=== PATIENT | female | born 1995 | race Caucasian/White ===

== ENCOUNTER 2020-05-20 16:45 | Emergency (ER) | payer OTHER ==
[~2020-05-20] VITALS: Ht 152.4 cm; Wt 46.6 kg
--- NOTE | 2020-05-20 17:22 | NUR ---
INTAKE COORDINATOR: PT TO ROOM FROM LOBBY
--- NOTE | 2020-05-20 17:39 | NUR ---
PT C/O RUQ ABD PAIN OFF AND ON FOR 2 TO 3 WEEKS. PAIN 2/. PT HAD NAUSEA, NO VOMITING. PAIN DESCRIBED "COLD BURNING". PT ALSO HAS BLOOD IN HER STOOL. PT ALSO HAD A WHITE STOOL RECENTLY. PT ALSO STATES SHE THINKS HER IUD HAS BEEN RECENTLY DISPLACED.
[2020-05-20 17:55] LABS: BASOPHILS % (AUTO) 1 % (0-1); EOSINOPHILS % (AUTO) 1 % (1-7); LYMPHOCYTES % (AUTO) 14 % (22-44); MEAN CORPUSCULAR HEMOGLOBIN 32.6 pg (27.0-34.8); MEAN CORPUSCULAR HGB CONC 34.2 g/dL (32.4-35.8); MEAN PLATELET VOLUME 9.5 fL (7.4-10.4); MONOCYTES % (AUTO) 6 % (2-9); NEUTROPHILS % (AUTO) 78 % (42-75); PLATELET COUNT 249 x10^3/uL (130-400); RED BLOOD COUNT 4.57 x10^6/uL (3.82-5.3); RED CELL DISTRIBUTION WIDTH 12.6 % (9.6-15.2)
[2020-05-20 17:58] LABS: MD NO
[2020-05-20] MEDS ORDERED: SODIUM CHLORIDE 0.9% 1,000ML IVBOLUS ONE (18:00)
[2020-05-20 18:03] LABS: ALBUMIN 4.2 g/dL (3.4-5.0); ANION GAP 4 mmol/L (5-15); CALCIUM 9.2 mg/dL (8.5-10.1); CHLORIDE 110 mmol/L (98-107)
[2020-05-20 18:10] LABS: ALANINE AMINOTRANSFERASE 25 U/L (12-78); ALKALINE PHOSPHATASE 68 U/L (45-117); BILIRUBIN,TOTAL 0.6 mg/dL (0.2-1.0); CREATININE 0.97 mg/dL (0.55-1.02); TOTAL PROTEIN 6.9 g/dL (6.4-8.2)
[2020-05-20] MEDS ORDERED: OMNIPAQUE 350 MG/ML, 100ML BOTTLE ONE (18:30)
--- NOTE | 2020-05-20 19:33 | NUR ---
Assumed pt care. Family at bedside. Pt calm, denies pain. States having no needs at this time.
[2020-05-20] MEDS ORDERED: CIPROFLOXACIN/PMX 400MG/200ML 200 ML ONE (20:07)
--- NOTE | 2020-05-20 20:16 | NUR ---
abx infusing. 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 Pt resting in bed. Needs met. Will monitor.
[2020-05-20] MEDS ORDERED: CIPROFLOXACIN/PMX 400MG/200ML 200 ML IVPB ONE (20:30)
[2020-05-20 21:35] VITALS: BP 100/64
--- NOTE | 2020-05-20 21:37 | NUR ---
Pt dc'd with written and verbal instrcutions. IV dc'd intact. pt home with a ride. Pt instrcutions gone over and patient states she understands. Pt ambulatory out of ED without difficulty.
== END 2020-05-20 21:40 | disposition home or self-care (01) ==
LOC: ED 17:58
DX: A09 Infectious gastroenteritis and colitis, unspecified (principal); R00.0 Tachycardia, unspecified; F17.200 Nicotine dependence, unspecified, uncomplicated
CPT/HCPCS: 36415; 74177; 76700; 80053; 83690; 84703; 85025; 96361; 96374; 99285; J0744; J7030; Q9967